=== PATIENT | female | born 1995 | race Caucasian/White ===

== ENCOUNTER 2018-11-11 05:59 | Emergency (ER) | payer SELFPAY ==
[~2018-11-11] VITALS: Ht 157.5 cm; Wt 81.2 kg
--- NOTE | 2018-11-11 06:04 | NUR ---
PT TAKEN TO BED 9
[2018-11-11 06:05] VITALS: BP 123/63
--- NOTE | 2018-11-11 06:20 | NUR ---
C/O 02/18 SORE THROAT X 3 DAYS. MINOR PRODUCTIVE COUGH WITH YELLOW SPUTUM. TOOK TYLENOL AT 0300.
[2018-11-11] MEDS ORDERED: CLINDAMYCIN 600 MG/4 ML VIAL IM ONE (07:10)
[2018-11-11] MEDS ORDERED: DEXAMETHASONE 10 MG/ML VIAL IM ONE (07:10)
--- NOTE | 2018-11-11 07:19 | NUR ---
PT C/O 02/18 THROAT PAIN X 3 DAYS ; WORSE UPON SWALLOWING--- NO DROOLING OR MUFFLED VOICE NOTED---BODYACHE AND SUBJECTIVE FEVER
--- NOTE | 2018-11-11 07:19 | NUR ---
STREP CULTURE SWAB COLLECTED AND LAB INFORMED
[2018-11-11 08:15] VITALS: BP 120/70
--- NOTE | 2018-11-11 08:15 | NUR ---
Patient discharged with v/s stable. Written and verbal after care instructions given and explained. Patient alert, oriented and verbalized understanding of instructions. Ambulatory with steady gait. All questions addressed prior to discharge. ID band removed. Patient advised to follow up with PMD. Rx of clindamycin/prednisone given. Patient educated on indication of medication including possible reaction and side effects. Opportunity to ask questions provided and answered.
== END 2018-11-11 08:15 | disposition home or self-care (01) ==
LOC: MED 05:59
DX: J03.90 Acute tonsillitis, unspecified (principal)
CPT/HCPCS: 87081; 96372; 99283; J1100; J3490